=== PATIENT | male | born 1950 | race Caucasian/White ===

== ENCOUNTER 2018-01-11 11:06 | Outpatient (RCR) | payer MEDICARE, OTHER | END 2018-01-11 12:46 | disposition home or self-care (01) | PROVIDERS: ATTEND Family Medicine | DX: M54.5 Low back pain (principal) ==

== ENCOUNTER 2018-11-20 08:10 | Outpatient (CLI) | payer MEDICARE, OTHER ==
[~2018-11-20] VITALS: Ht 185.4 cm; Wt 67.6 kg
[2018-11-20 08:52] VITALS: BP 137/85
[2018-11-20 09:00] LABS: BASOPHILS % (AUTO) 0 % (0-10); EOSINOPHILS % (AUTO) 1 % (0-10); HEMATOCRIT 41 % (40-54); HEMOGLOBIN 13.7 G/DL (13.3-17.7); LYMPHOCYTES # (AUTO) 1.3 X 10^3 (1.0-4.0); LYMPHOCYTES % (AUTO) 38 % (12-44); MEAN CORPUSCULAR HEMOGLOBIN 31 PG (25-34); MEAN CORPUSCULAR HGB CONC 34 G/DL (32-36); MEAN CORPUSCULAR VOLUME 92 FL (80-99); MEAN PLATELET VOLUME 9.2 FL (7.4-10.4); MONOCYTES # (AUTO) 0.4 X 10^3 (0.0-1.0); MONOCYTES % (AUTO) 11 % (0-12); NEUTROPHILS # (AUTO) 1.7 X 10^3 (1.8-7.8); NEUTROPHILS % (AUTO) 50 % (42-75); PLATELET COUNT 165 10^3/uL (130-400); RED BLOOD COUNT 4.44 10^6/uL (4.35-5.85); WHITE BLOOD COUNT 3.4 10^3/uL (4.3-11.0)
--- NOTE | 2018-11-20 09:07 | Diagnostic Imaging Report ---
INDICATION: Preop for laryngoscopy with biopsy. FINDINGS: PA and lateral chest. The lungs are well-aerated. There are no infiltrates. There are no masses. The heart is not enlarged. There is no pulmonary edema. No pneumothorax or pleural effusion. No bony abnormalities. IMPRESSION: Normal PA and lateral chest. Dictated by: Dictated on workstation # [id number]
[2018-11-20] MEDS ORDERED: OMEP20CA12 PO (09:13)
[2018-11-20] MEDS ORDERED: GENT5DRO30 OD (09:13)
[2018-11-20] MEDS ORDERED: MULT-406 PO (09:13)
[2018-11-20] MEDS ORDERED: OMEG100032 PO (09:13)
[2018-11-20] MEDS ORDERED: ASPI-586 PO (09:13)
[2018-11-20 09:14] LABS: BUN/CREATININE RATIO 14; CALCIUM 9.4 MG/DL (8.5-10.1); CARBON DIOXIDE 27 MMOL/L (21-32); CHLORIDE 105 MMOL/L (98-107); CREATININE SERUM 0.86 MG/DL (0.60-1.30); GFR ESTIMATED > 60; GLUCOSE 92 MG/DL (70-105); POTASSIUM 4.8 MMOL/L (3.6-5.0); SODIUM 141 MMOL/L (135-145)
== END 2018-11-20 09:05 | disposition home or self-care (01) ==
LOC: PREOP 08:10
PROVIDERS: ATTEND Otolaryngology Otolaryngology/Facial Plastic Surgery
DX: Z01.810 Encounter for preprocedural cardiovascular examination (principal); Z01.811 Encounter for preprocedural respiratory examination; Z01.812 Encounter for preprocedural laboratory examination; Z11.2 Encounter for screening for other bacterial diseases; J38.7 Other diseases of larynx
CPT/HCPCS: 36415; 71046; 80048; 85025; 87081; 93005

== ENCOUNTER 2018-11-23 06:05 | Day surgery (SDC) | payer MEDICARE, OTHER ==
[~2018-11-23] VITALS: Ht 185.4 cm; Wt 67.6 kg
[~2018-11-23 06:05] MED LIST: ASPI-586 PO; GENT5DRO30 OD; MULT-406 PO; OMEG100032 PO; OMEP20CA12 PO
[2018-11-23] MEDS ORDERED: LACTATED RINGERS 1,000 ML IV PRN (06:12)
[2018-11-23 06:15] VITALS: BP 112/78
[2018-11-23] MEDS ORDERED: LIDOCAINE PF 2% 5 ML (XYLOCAINE) VIAL ONE (06:51)
[2018-11-23] MEDS ORDERED: ROCURONIUM 10 MG/ML 5 ML SYRINGE IV ONE (06:51)
[2018-11-23] MEDS ORDERED: NEOSTIGMINE 1 MG/ML 5 ML SYRINGE ONE (06:51)
[2018-11-23] MEDS ORDERED: GLYCOPYRROLATE 0.2 MG/ML (ROBINUL) 2 ML VIAL ONE (06:51)
[2018-11-23] MEDS ORDERED: DEXAMETHASONE 10 MG/ML (DECADRON) 1 ML VIAL ONE (06:51)
[2018-11-23] MEDS ORDERED: ONDANSETRON 4 MG/2 ML (SDV) Z0FRAN ONE (06:51)
[2018-11-23] MEDS ORDERED: fentaNYL INJECTION 100 MCG/2 ML AMP ONE (06:51)
[2018-11-23] MEDS ORDERED: proPOfol 200 MG/20 ML (DIPRIVAN) VIAL IV ONE (06:51)
[2018-11-23] MEDS ORDERED: MIDAZOLAM 2 MG/2 ML (VERSED) VIAL ONE (06:52)
[2018-11-23] MEDS ORDERED: LIDOCAINE/EPI 1%-1:100,000 (XYLOCAINE) 20ML ONE (07:04)
--- NOTE | 2018-11-23 07:10 | Progress Note-Pre Operative ---
Pre-Operative Progress Note H&P Reviewed The H&P was reviewed, patient examined and no changes noted. Date Seen by Provider: Nov 23, 2018 Time Seen by Provider: 07:00 Date H&P Reviewed: Nov 23, 2018 Time H&P Reviewed: 07:00 Pre-Operative Diagnosis: Laryngeal Lesion- JANELLE MARIN MD Nov 23, 2018 07:10
[2018-11-23] MEDS ORDERED: SEVOFLURANE (ULTANE) 15 ML INHAL SOLN ONE (08:21)
--- NOTE | 2018-11-23 08:25 | Progress Note-Post Operative ---
Post-Operative Progess Note Surgeon (s)/Accounts Receivable Executive (s) Surgeon JANELLE MARIN MD Accounts Receivable Executive n/a Pre-Operative Diagnosis Laryngeal Lesion- Post-Operative Diagnosis same Post-Op Procedure Note Date of Procedure: Nov 23, 2018 Name of Procedure Performed: Direct Laryngoscopy with Biopsy Description & Findings Description and Findings: n/a Anesthesia Type get Estimated Blood Loss minimal Packing none. Specimen(s) collected/removed specimen to path for frozen and permanents JANELLE MARIN MD Nov 23, 2018 08:25
[2018-11-23] MEDS ORDERED: ACETAMINOPHEN 325 MG TABLET PO PRN (08:30)
[2018-11-23] MEDS ORDERED: HYDROcodone/APAP 5 MG/325 MG (LORTAB) TAB PO PRN (08:30)
[2018-11-23] MEDS ORDERED: PROMETHAZINE INJ 25 MG/ML (PHENERGAN) AMP IV PRN (08:30)
[2018-11-23 09:15] VITALS: BP 133/81
[2018-11-23 09:20] VITALS: BP 133/81
[2018-11-23] MEDS ORDERED: HYDR-3812 PO (09:26)
[2018-11-23 09:45] VITALS: BP 123/85
[2018-11-23 10:15] VITALS: BP 118/77
[2018-11-23 10:35] VITALS: BP 118/77
--- NOTE | 2018-11-23 12:44 | Anesthesia-General Post-Op ---
General Patient Condition Mental Status/LOC: Same as Preop Cardiovascular: Satisfactory Nausea/Vomiting: Absent Respiratory: Satisfactory Pain: Controlled Complications: Absent Post Op Complications Complications None Follow Up Care/Instructions Patient Instructions None needed. Anesthesia/Patient Condition Patient Condition Patient is doing well, no complaints, stable vital signs, no apparent adverse anesthesia problems. No complications reported per nursing. D/C home per [facility] [place] Criteria: Yes YAHAIRA MENDOZA CRNA Nov 23, 2018 12:44
== END 2018-11-23 10:40 | disposition home or self-care (01) ==
LOC: SDC 06:05
PROVIDERS: ATTEND Otolaryngology Otolaryngology/Facial Plastic Surgery
DX: J05.10 Acute epiglottitis without obstruction (principal); K21.9 Gastro-esophageal reflux disease without esophagitis; B19.20 Unspecified viral hepatitis C without hepatic coma; Z85.818 Personal history of malignant neoplasm of other sites of lip, oral cavity, and pharynx; Z87.891 Personal history of nicotine dependence; Z79.82 Long term (current) use of aspirin; Z79.899 Other long term (current) drug therapy; Z92.21 Personal history of antineoplastic chemotherapy; Z92.3 Personal history of irradiation